=== PATIENT | female | born 1980 | race Caucasian/White ===

== ENCOUNTER 2017-01-29 21:13 | Inpatient (IN) ==
[2017-01-29] MEDS ORDERED: ONDANSETRON 4 MG/2 ML VIAL IV PRN (21:50)
[2017-01-29] MEDS ORDERED: MEPERIDINE 50 MG/1 ML VIAL IV PRN (21:50)
[2017-01-29] MEDS ORDERED: BUTORPHANOL 2 MG/ML VIAL IV PRN (21:50)
[2017-01-29] MEDS ORDERED: AMPICILLIN 2,000 MG VIAL ONE (21:55)
[2017-01-29] MEDS ORDERED: SODIUM CHLORIDE 0.9% 100 ML IV ONE (21:55)
[2017-01-29] MEDS ORDERED: LACTATED RINGERS 1,000 ML IV SCH (22:00)
[2017-01-29] MEDS ORDERED: AMPICILLIN INJ 2,000 MG in SODIUM CHLORIDE 0.9% 100 ML IV SCH (22:00)
[2017-01-29 22:10] LABS: Basophils # 0.1 10*3/uL (0.0-0.2); Basophils % 0.7 % (0.0-0.8); Eosinophils # 0.2 10*3/uL (0.0-0.87); Eosinophils % 1.4 % (0.00-10.9); Hematocrit 33.9 VOL% (35.7-47.0); Hemoglobin 11.9 GM/DL (12.0-16.0); Immature Granulocytes % 1.6 %; Immature Granulocytes Absolute 0.17 #; Lymphocytes # 2.1 10*3/uL (1.4-4.0); Lymphocytes % 20.3 % (21.3-54.2); Mean Corpuscular HGB Conc 35.1 GM/DL (32-36); Mean Corpuscular Hemoglobin 31 PG (27-34); Mean Platelet Volume 10.7 FL (9.6-12.0); Monocytes # 0.9 10*3/uL (0.11-0.8); Monocytes % 8.4 % (1.7-12.7); Neutrophils # 7.1 10*3/uL (1.4-7.4); Neutrophils % 67.6 % (38.7-73.9); Platelet Count 235 T/CUMM (130-400); Red Blood Count 3.81 MC/CUMM (3.8-5.5); Red Cell Distribution Width 13.7 % (9.3-17.3); White Blood Count 10.5 T/CUMM (4-12)
[2017-01-29 22:30] LABS: Alanine Aminotransferase 15 U/L (13-56); Albumin 2.5 G/DL (3.4-5.0); Alkaline Phosphatase 164 U/L (45-117); Aspartate Amino Transferase 16 U/L (0-37); Bilirubin,Total < 0.39 MG/DL (0.2-1.0); Blood Urea Nitrogen 9 MG/DL (7-18); Glucose 89 MG/DL (74-106); Osmolality,Calculated 278.3 MOS/KG (273-304); Sodium 141 MMOL/L (136-145); Total Protein 5.8 G/DL (6.4-8.3)
[2017-01-29 23:03] LABS: Rubella Antibody IgG 30.5 IU/ML
[2017-01-29 23:31] LABS: HIV Antigen/Antibody Result Nonreactive (Nonreactive); Hepatitis B Surface Ag Quant < 0.10 Index; Hepatitis B Surface Ag Result Negative (Negative)
[2017-01-30] MEDS ORDERED: miSOPROStol 200 MCG TABLET ONE (01:26)
[2017-01-30] MEDS ORDERED: LIDOCAINE 1% 50 ML VIAL ONE (01:26)
[2017-01-30] MEDS ORDERED: METHYLERGONOVINE 0.2 MG/1 ML AMP ONE (01:27)
[2017-01-30] MEDS ORDERED: OXYTOCIN/LR 20 UNIT/1,000 ML BAG IV ONE ×2 (01:27→03:03)
--- NOTE | 2017-01-30 01:43 | OB/GYN History & Physical ---
History of Present Illness Chief complaint: SROM History of present illness: Ms. Otero is a 37 year old female presented to L&D ~2129 with complaints of SROM. Pt reports that she had care in [place] but we have no records. Denies any issues with this . H/o without complication x 4 and SAB x 2. 3/50 and grossly ruptured on arrival. No PmHx or Surgical history. Home Medications Medication Instructions Recorded Confirmed Type Vits #90/Iron Fum/FA 1 tablet PO DAILY 01/29/17 01/29/17 History [ Formula Tablet] Allergies Allergy/AdvReac Type Severity Reaction Status Date / Time No Known Allergies Allergy Verified 01/29/17 21:43 Medical,Surgical,& Family Hx - Medical History Reproductive: No history of: Ectopic , Complication - Surgical History Reproductive Surgeries: Patient denies;: Section - Family History Family History: Denies;: Family Anesthesia Reaction, Family Cancer, Family Diabetes, Family Heart Disease, Family Hematology, Family Hypertension, Family Psychiatric Problems, Family Stroke, Additional Family History - Social History Smoking Status: Never smoker Frequency of Alcohol Use: None 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 Absent: tenderness Assessment and Plan (1) 37 weeks gestation of Status: Acute Current Visit: Yes (2) SROM (spontaneous rupture of membranes) Status: Acute Assessment and plan: 37 1/7 weeks with SROM and lack of documentation of care with this , language barrier as well. Anticipate Current Visit: Yes Results - Labs CBC & BMP: 01/29/17 22:04 01/29/17 22:04
[2017-01-30] MEDS ORDERED: OXYTOCIN/LR 20 UNIT/1,000 ML BAG IV SCH (01:51)
[2017-01-30] MEDS ORDERED: MEASLES/MUMPS/RUBELLA VACCINE 0.5 ML VIAL SUBCUT ONE (03:03)
[2017-01-30] MEDS ORDERED: ACETAMINOPHEN 325 MG TABLET PO PRN (03:03)
[2017-01-30] MEDS ORDERED: BENZOCAINE 20%/MENTHOL 0.5% SPRAY 56 GM CAN TOP PRN (03:03)
[2017-01-30] MEDS ORDERED: BISACODYL 10 MG SUPP RECTAL PRN (03:03)
[2017-01-30] MEDS ORDERED: HYDROCORTISONE 2.5% RECTAL CREAM 30 GM TUBE TOP PRN (03:03)
[2017-01-30] MEDS ORDERED: ONDANSETRON 4 MG/2 ML VIAL IV PRN (03:03)
[2017-01-30] MEDS ORDERED: RHO(D) IMMUNE GLOBULIN 300 MCG SYRINGE IM ONE (03:03)
[2017-01-30] MEDS ORDERED: WITCH HAZEL PADS 100/JAR TOP PRN (03:03)
[2017-01-30] MEDS ORDERED: LANOLIN 50% CREAM 0.3 OZ TUBE TOP PRN (03:03)
[2017-01-30] MEDS ORDERED: DIPH/TET/ACEL PERT BOOSTER VACCINE 0.5 ML VIAL IM ONE (03:03)
[2017-01-30] MEDS ORDERED: IBUPROFEN 800 MG TABLET PO PRN (03:03)
--- NOTE | 2017-01-30 03:07 | Event Note ---
DELIVERY NOTE of female in the TOR position. No anesthesia per patient choice. Weight 5lbs 14 oz. APGARS 9/9. Spontaneous delivery of intact placenta. EBL 300 cc. Bilateral periurethral lacs, hemostatic. Right introital tear repaired with 3.0 vicryl. NICU present for delivery. Mom and baby doing well.
[2017-01-30 06:18] LABS: Basophils % 0.2 % (0.0-0.8); Hematocrit 36.6 VOL% (35.7-47.0); Hemoglobin 13.1 GM/DL (12.0-16.0); Immature Granulocytes % 0.9 %; Lymphocytes # 1.1 10*3/uL (1.4-4.0); Mean Corpuscular HGB Conc 35.8 GM/DL (32-36); Mean Corpuscular Hemoglobin 31 PG (27-34); Mean Corpuscular Volume 87.8 FL (87-102); Mean Platelet Volume 10.6 FL (9.6-12.0); Monocytes # 0.9 10*3/uL (0.11-0.8); Monocytes % 4.3 % (1.7-12.7); Neutrophils # 19.1 10*3/uL (1.4-7.4); Neutrophils % 89.6 % (38.7-73.9); Platelet Count 226 T/CUMM (130-400); Red Blood Count 4.17 MC/CUMM (3.8-5.5); Red Cell Distribution Width 13.6 % (9.3-17.3); White Blood Count 21.4 T/CUMM (4-12)
[2017-01-30 06:37] LABS: Band Neutrophils 1 % (0-10); Lymphocytes 3 % (20-55); Platelet Estimate Adequate; Segmented Neutrophils 91 % (50-85); Total Cells Counted 100
[2017-01-30 06:38] LABS: Hypochromasia Slight
[2017-01-30] MEDS: DOCUSATE SODIUM 100 MG CAPSULE PO SCH ×2 (10:09→21:46)
[2017-01-31] MEDS: DOCUSATE SODIUM 100 MG CAPSULE PO SCH ×2 (10:00→23:00)
--- NOTE | 2017-01-31 10:13 | OB/GYN Progress Note ---
Assessment and Plan (1) 37 weeks gestation of Status: Acute Current Visit: Yes (2) SROM (spontaneous rupture of membranes) Status: Acute Assessment and plan: 37 1/7 weeks with SROM and lack of documentation of care with this , language barrier as well. 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 Absent: tenderness Results - Labs CBC & BMP: 01/30/17 06:10 01/29/17 22:04
[2017-02-01 09:02] VITALS: BP 106/71
--- NOTE | 2017-02-01 09:39 | Discharge Summary ---
Hospital Course - Hospital Course Hospital Course: Routine course. Ready to go home Diagnosis - Discharge Diagnosis (1) 37 weeks gestation of Status: Acute (2) SROM (spontaneous rupture of membranes) Status: Acute (3) Encounter for full-term uncomplicated delivery Status: Acute Specialty Discharge - Follow Up or Referrals Discharge Plan - Discharge Data Disposition: Disch To Home/Self Care Condition at Discharge: Stable Discharge Diet: advance to your usual diet Activity: other (routine ) Hygiene: may shower Weight Bearing at Discharge: full weight bearing Driving: no restrictions - Discharge Medications New Ibuprofen Tab [Motrin Tab] 800 mg PO Q6H PRN #30 tablet PRN Reason: Pain Moderate (4-7) No Action Vits #90/Iron Fum/FA [ Formula Tablet] 1 tablet PO DAILY - Follow Up or Referral - Forms/Instructions Instructions: Perineal Care (DC), Vaginal Delivery (DC), Bleeding (DC) Exam - Constitutional Vitals: Period Temp Pulse Resp BP Sys/Preciado Pulse Ox Last 24 Hr 97 F-98.2 F 52-74 16-18 90-106/48-71 95-99 General appearance: normal weight, no acute distress - Head Head exam: Present: normal inspection, normocephalic - Eye Eye exam: Present: EOMI - GI/Abdominal GI/Abdominal exam: Present: soft. Absent: tenderness DS: Provider Date of admission: 01/29/17 22:02 Attending physician on admission: Chiqui ePpe MD Consults: 01/30/17 03:03 Consult to Utility Locate Technician [CONS] Routine Consult Utility Locate Technician: Breast Feeding Discharging clinician: Chiqui Pepe MD
[2017-02-01] MEDS: DOCUSATE SODIUM 100 MG CAPSULE PO SCH (09:45)
== END 2017-02-01 12:00 | disposition home or self-care (01) | DRG 775 ==
LOC: N.LDOUT 21:13 → N.LD 21:19 → N.OB 01-30 10:11
PROVIDERS: ADMIT Obstetrics & Gynecology; ATTEND Obstetrics & Gynecology